=== PATIENT | male | born 1975 ===

== ENCOUNTER 2020-01-13 10:37 | Inpatient (IN) ==
[2020-01-13] MEDS ORDERED: SODIUM CHLORIDE 0.9% 1,000 ML IV STA (10:56)
[2020-01-13] MEDS ORDERED: DILTIAZEM 50 MG/10 ML VIAL IV STA (10:57)
[2020-01-13 11:05] LABS: Basophils % 0.5 % (0.0-0.8); Eosinophils # 0.2 10*3/uL (0.0-0.87); Hematocrit 39.1 VOL% (42.0-52.0); Hemoglobin 12.7 GM/DL (14.0-18.0); Immature Granulocytes % 0.4 %; Immature Granulocytes Absolute 0.03 #; Lymphocytes # 1.6 10*3/uL (1.4-4.0); Lymphocytes % 18.4 % (21.2-54.2); Mean Corpuscular HGB Conc 32.5 GM/DL (32-36); Mean Corpuscular Volume 89.9 FL (87-102); Mean Platelet Volume 10.2 FL (9.6-12.0); Monocytes % 7.6 % (1.7-12.7); Neutrophils % 71.1 % (38.7-73.9); Platelet Count 154 T/CUMM (130-400); Red Blood Count 4.35 MC/CUMM (3.8-5.5); Red Cell Distribution Width 13.8 % (9.3-17.3); White Blood Count 8.5 T/CUMM (4-12)
[2020-01-13] MEDS ORDERED: MAGNESIUM SULF RIDER 2 GM in PREMIX 1 EACH IV PRN (11:11)
[2020-01-13] MEDS ORDERED: ONDANSETRON 4 MG/2 ML VIAL IV PRN (11:11)
[2020-01-13] MEDS ORDERED: PROMETHAZINE 25 MG TABLET PO PRN (11:11)
[2020-01-13] MEDS ORDERED: POTASSIUM CHLORIDE 20 MEQ TABLET PO PRN (11:11)
[2020-01-13] MEDS ORDERED: MAGNESIUM SULF RIDER 4 GM in PREMIX 1 EACH IV PRN (11:11)
[2020-01-13] MEDS ORDERED: ZALEPLON 5 MG CAPSULE PO PRN (11:11)
[2020-01-13] MEDS ORDERED: hydrALAZINE 20 MG/1 ML VIAL IV PRN (11:11)
[2020-01-13] MEDS ORDERED: MORPHINE 4 MG/1 ML VIAL IV PRN (11:11)
[2020-01-13] MEDS ORDERED: ALUMINUM/MAGNES/SIMETH MAX STR 30 ML UDCUP PO PRN (11:11)
[2020-01-13] MEDS ORDERED: ACETAMINOPHEN 325 MG TABLET PO PRN (11:11)
[2020-01-13] MEDS ORDERED: DOCUSATE SODIUM 100 MG CAPSULE PO PRN (11:11)
[2020-01-13 11:17] LABS: INR 1.2; PT Patient Result 12.5 SECS (9.8-11.9); Partial Thromboplastin Time 34.4 SECS (23.9-33.8)
[2020-01-13] MEDS: dilTIAZem Drip 125 MG/125 ML PREMIX IV SCH (11:30)
[2020-01-13 11:44] LABS: Albumin 3.3 G/DL (3.4-5.0); Bilirubin,Total 1.7 MG/DL (0.2-1.0); Calcium 9.5 MG/DL (8.5-10.1); Osmolality,Calculated 282.1 MOS/KG (273-304); Potassium 4.3 MMOL/L (3.5-5.1); Thyroid Stimulating Hormone 4.4 uIU/ml (0.358-3.74)
[2020-01-13] MEDS ORDERED: DEXTROSE 50% 25 GM/50 ML VIAL IV PRN (12:44)
[2020-01-13] MEDS ORDERED: GLUCAGON 1 MG VIAL IM PRN (12:44)
[2020-01-13] MEDS: INSULIN LISPRO 100 UNIT/ML SUBCUT SCH ×2 (16:35→21:15)
[2020-01-13] MEDS ORDERED: INSULIN GLARGINE 100 UNIT/ML SUBCUT SCH (21:00)
[2020-01-13] MEDS: ASCORBIC ACID 500 MG TABLET PO SCH (21:10)
[2020-01-13] MEDS: METOPROLOL TARTRATE 50 MG TABLET PO SCH (21:11)
[2020-01-14 00:35] LABS: Bilirubin,Urine Negative (Negative); Blood, Urine Negative (Negative); Glucose,Urine (UA) Negative (Negative); Ketones,Urine Negative (Negative); Mucus,Urine Occasional /LPF (Occasional); Nitrite,Urine Negative (Negative); Protein,Urine Negative; RBC,Urine <1 /HPF (0-4); Squamous Epithelial Cell,Urine Occasional /HPF (0-10); Urine Appearance CLEAR (Clear); Urine Color Yellow (Yellow); Urine Specific Gravity 1.017 (1.001-1.035); WBC,Urine <1 /HPF (0-6)
[2020-01-14 01:02] LABS: Barbiturates Screen,Urine Negative (Negative); Benzodiazepines Screen,Urine Negative (Negative); Cannabinoid Screen,Urine Negative (Negative); Opiate Screen,Urine Negative (Negative); Phencyclidine Screen,Urine Negative (Negative)
[2020-01-14 06:16] LABS: Basophils % 0.5 % (0.0-0.8); Eosinophils # 0.2 10*3/uL (0.0-0.87); Eosinophils % 3.8 % (0.00-10.9); Hematocrit 34.5 VOL% (42.0-52.0); Hemoglobin 11.2 GM/DL (14.0-18.0); Immature Granulocytes % 0.3 %; Immature Granulocytes Absolute 0.02 #; Lymphocytes # 1.7 10*3/uL (1.4-4.0); Lymphocytes % 27.3 % (21.2-54.2); Mean Corpuscular HGB Conc 32.5 GM/DL (32-36); Mean Corpuscular Volume 89.1 FL (87-102); Mean Platelet Volume 10.2 FL (9.6-12.0); Monocytes % 10.7 % (1.7-12.7); Neutrophils % 57.4 % (38.7-73.9); Platelet Count 139 T/CUMM (130-400); Red Blood Count 3.87 MC/CUMM (3.8-5.5); Red Cell Distribution Width 13.7 % (9.3-17.3); White Blood Count 6.3 T/CUMM (4-12)
[2020-01-14 06:39] LABS: Blood Urea Nitrogen 31 MG/DL (7-18); Carbon Dioxide 26 MMOL/L (21-32); Estimated Glom Filtration Rate 109 ML/MIN; Glucose 88 MG/DL (74-106); Osmolality,Calculated 280.7 MOS/KG (273-304); Potassium 4.6 MMOL/L (3.5-5.1); Sodium 138 MMOL/L (136-145); Troponin I < 0.015 NG/ML (0.00-0.045)
[2020-01-14 06:58] LABS: Platelet Estimate Adequate
[2020-01-14] MEDS: INSULIN LISPRO 100 UNIT/ML SUBCUT SCH ×3 (08:02→17:03)
[2020-01-14] MEDS: ASCORBIC ACID 500 MG TABLET PO SCH (08:42)
[2020-01-14] MEDS: METOPROLOL TARTRATE 50 MG TABLET PO SCH (08:43)
[2020-01-14] MEDS ORDERED: LOSARTAN 50 MG TABLET PO SCH (09:00)
[2020-01-14] MEDS ORDERED: OMEGA 3 ACID ETHYL ESTERS 1 GM CAPSULE PO SCH (09:00)
[2020-01-14] MEDS ORDERED: PANTOPRAZOLE 40 MG TABLET PO SCH (09:00)
[2020-01-14] MEDS ORDERED: RIVAROXABAN 20 MG TABLET PO SCH (09:00)
[2020-01-14] MEDS: dilTIAZem Drip 125 MG/125 ML PREMIX IV SCH (11:08)
[2020-01-14] MEDS ORDERED: LIDOCAINE 2% 5 ML VIAL ONE (13:46)
[2020-01-14] MEDS ORDERED: propofoL 200 MG/20 ML VIAL IV ONE (13:46)
[2020-01-14 16:10] VITALS: BP 133/91
[2020-01-14] MEDS ORDERED: AMIODARONE 200 MG TABLET PO SCH (21:00)
== END 2020-01-14 18:00 | disposition home or self-care (01) | DRG 309 ==
LOC: N.ED 10:37 → N.EDINP 11:11 → N.TELEN 15:16
PROVIDERS: ADMIT Internal Medicine Cardiovascular Disease; ATTEND Internal Medicine Cardiovascular Disease